=== PATIENT | female | born 1975 | race Two or more races ===

== ENCOUNTER 2021-02-25 10:01 | Emergency (ER) | payer OTHER ==
[~2021-02-25] VITALS: Ht 162.6 cm; Wt 63.5 kg
[2021-02-25 10:25] VITALS: BP 123/81
[2021-02-25] MEDS ORDERED: KETOROLAC TROMETH 60MG/2ML VIAL IM ONE (11:00)
== END 2021-02-25 11:47 | disposition home or self-care (01) ==
LOC: EDBD 10:01 → ER 10:01
DX: S16.1XXA Strain of muscle, fascia and tendon at neck level, initial encounter (principal); G44.309 Post-traumatic headache, unspecified, not intractable; M54.6 Pain in thoracic spine; M54.2 Cervicalgia; Z88.2 Allergy status to sulfonamides; V49.49XA Driver injured in collision with other motor vehicles in traffic accident, initial encounter; Y93.89 Activity, other specified; Y92.488 Other paved roadways as the place of occurrence of the external cause; Y99.8 Other external cause status
CPT/HCPCS: 70450; 72125; 72128; 96372; 99285; J1885